=== PATIENT | female | born 2000 | race Caucasian/White ===

== ENCOUNTER 2024-02-02 15:41 | Emergency (ER) | payer OTHER, SELFPAY ==
--- NOTE | ~2024-02-02 | US_ITS ---
EXAMINATION: US PELVIS CLINICAL INFORMATION: Heavy menstruation, pain and nausea. Currently having menstrual period. COMPARISON: None available. TECHNIQUE: Ultrasound of the pelvis is performed using both transabdominal and transvaginal transducers along with Doppler. Transvaginal imaging is performed due to inadequate visualization transabdominally. FINDINGS: Uterus: The uterus is anteverted and measures 6.1 x 3.1 x 3.5 cm. The double wall endometrial thickness is 4 mm. The uterus is smooth in contour and has normal myometrial echogenicity. No visible fibroid. Adnexa: Ovaries are normal in morphology with preserved flow at the moment of this examination.There is no pelvic ascites or fluid collection. Right ovary measures 3.2 x 1.6 x 2.2 cm. Volume of 6 mL. Left ovary measures 3.2 x 2.3 x 1.8 cm. Volume of 7 mL. US/US pelvic and transvaginal IMPRESSION: No acute sonographic abnormalities to explain the patient's symptoms.
[2024-02-02 15:43] VITALS: BP 110/80; PULSE 113; RESP 18; TEMP 36.4; O2SAT 100; BMI 29.2
--- NOTE | 2024-02-02 15:45 | ED_ITS ---
HPI - General Adult General Chief complaint: Dizziness Stated complaint: bleeding heavily/dizziness Time Seen by Provider: 02/02/24 20:57 Source: patient Mode of arrival: ambulatory Limitations: no limitations History of Present Illness HPI narrative: Patient is a 23-year-old female presenting to emergency department for evaluation of symptoms with onset yesterday including generalized body aches, dizziness, nausea with multiple episodes of vomiting while in the waiting room, menstrual cramping, heavy vaginal bleeding with reports of soaking through super tampon within 2 hours with her menses having began a couple of days ago. Reports home testing is negative, has history of PCOS. Reports chronic nasal congestion without any worsening. Denies fevers, chills, chest pain, shortness of breath, constipation, diarrhea, urinary symptoms, concern for STI. Denies any recent sick contacts. Related Data Previous Rx's Medication Instructions Recorded ondansetron 4 mg disintegrating 4 mg PO Q8H PRN nausea and 02/03/24 tablet vomiting #10 tabs Allergies Allergy/AdvReac Type Severity Reaction Status Date / Time No Known Allergies Allergy Verified 02/02/24 15:49 Review of Systems 2 Review of Systems: Yes all other systems are reviewed and are negative [facility] Past Medical History Attestation statement: The following information was validated with the patient. Source: old records reviewed Social History Social History Smoked in Last 30 Days: No Use of substances other than those prescribed or required for medical reasons: No Advance Directives: No Advance Directives Information Provided: No Physical Exam ED Vital Signs: Vital Signs - 24 hr 02/02/24 15:43 02/02/24 21:05 02/02/24 23:29 Temperature 97.6 F 97.9 F 98.0 F Pulse Rate 113 H 105 H 92 Respiratory Rate 18 17 17 Blood Pressure 110/80 135/71 113/58 L Pulse Oximetry 100 98 100 Oxygen Delivery Method Room Air Room Air Room Air BMI result Body Mass Index 29.2 Appearance: Alert.?Oriented to person, place and time. No acute distress.?Normal affect. Eyes: Pupils equal, round and reactive to light.? ENT: Pharynx normal.?? Neck: Normal inspection.? Neck supple.?? CVS: Heart sounds normal. Mild tachycardia, normal rhythm Pulses normal.?? Respiratory: No respiratory distress.? Lung sounds clear to auscultation bilaterally?? Abdomen: Soft and non-tender. Normoactive bowel sounds. No pulsatile mass.??No CVA tenderness Skin: Skin warm and dry.? Normal skin color.? Extremities: No lower extremity edema.? No calf ttp? Neuro: Moves all extremities spontaneously. Sensation intact bilaterally. No focal neuro deficits. Ambulates with normal steady gait. Course Course Course Narrative: RME- 23 year old female presents for evaluation of body aches, cramps, and heavy vaginal bleeding. She reports not feeling well since yesterday with nausea. Plan for labs, HCG, UA Reevaluation(s) Reevaluation #1: CBC reveals mild leukocytosis of 13.7, electrolytes within normal range, no PARK. Transaminases normal. Lipase within normal range. HCG negative. Urinalysis with hematuria, no evidence of urinary infection. Viral panel is negative. Feel symptomatic improvement after normal saline and Zofran IV. Pelvic ultrasound revealing no acute abnormality. Suspect likely a viral syndrome as etiology, recommended repeat viral testing in a couple of days should symptoms persist. Discussed strict return precautions. Tolerating oral intake. Stable for discharge. Medications Administered Discontinued Medications Generic Name Dose Route Start Last Admin Trade Name Freq PRN Reason Stop Dose Admin Sodium Chloride 1,000 mls @ 999 mls/hr 02/02/24 22:00 02/02/24 23:50 Ns IV 02/02/24 23:00 Infused .Q1H1M NAVI Infusion Ondansetron HCl 4 mg 02/02/24 15:49 02/02/24 15:51 Ondansetron Odt 4 Mg Tab.Rapdis TRANSLINGU 02/02/24 15:50 4 mg ONCE ONE Administration Ondansetron HCl 4 mg 02/02/24 21:59 02/02/24 22:43 Ondansetron Hcl 4 Mg/2 Ml Vial IVPUSH 02/02/24 22:00 4 mg ONCE ONE Administration Medical Decision Making Medical Decision Making MDM Narrative: Patient is a 23-year-old female who presents emergency department for evaluation of multiple complaints including viral type symptoms, dizziness nausea menstrual cramping and heavy vaginal bleeding as per HPI. At the time my examination she appears overall well, she is mildly tachycardic but afebrile no tachypnea or hypoxia. Abdominal examination is benign. Will obtain CBC to evaluate for leukocytosis/ anemia, CMP and lipase to evaluate for abnormal electrolytes /abnormal renal function/ abnormal hepatic/biliary function, hCG, pelvic ultrasound, and Urinalysis. Differential Diagnosis Differential Diagnoses: The differential diagnosis associated with the presentation includes (UTI, , irregular menstrual bleeding, viral syndrome, COVID-19, influenza, dehydration) Admission/Observation Consideration of admission/observation: Escalation of care including admission/observation considered (See narrative above and course narrative for further detail) Lab Data MDM Lab Attestation statement: I reviewed the patient's lab results. CBC reveals a mild leukocytosis with left shift, no anemia, overall unremarkable CMP, lipase within normal limits, hCG negative. Viral panel negative. 02/02/24 16:47 02/02/24 16:47 Labs: Lab Results 02/02/24 02/02/24 02/02/24 Range/Units 16:47 19:27 21:15 WBC 13.7 H (4.8-10.8) X10*3/uL RBC 5.44 (4.20-5.50) X10*6/uL Hgb 16.1 H (12.0-16.0) g/dl Hct 47.6 H (37.0-47.0) % MCV 87.5 (80.0-98.0) fL MCH 29.6 (27.0-33.0) pg MCHC 33.8 (31.0-35.0) g/dl RDW 13.2 (11.0-16.0) % Plt Count 296 (160-400) X10*3/uL MPV 9.9 (9.4-12.3) fL Immature Gran % (Auto) 0.3 (0.0-0.4) % Neut % (Auto) 87.7 H (45-73) % Lymph % (Auto) 4.2 L (20-40) % [place] % (Auto) 5.5 (2-11) % Eos % (Auto) 2.0 (0-4) % Baso % (Auto) 0.3 (0-2) % Lymph # (Auto) 0.6 L (1.2-4.9) X10*3/uL [place] # (Auto) 0.8 (0.1-1.2) X10*3/uL Eos # (Auto) 0.3 (0.0-0.4) X10*3/uL Baso # (Auto) 0.0 (0.0-0.2) X10*3/uL Abs Immat Gran (auto) 0.04 H (0.00-0.03) X10*3/uL Absolute Neuts (auto) 12.0 H (2.0-8.3) x10*3/uL Absolute Nucleated RBC 0.000 (0.0-0.012) X10*3/uL Nucleated RBC % (auto) 0.0 (0.0-0.2) /100WBC Sodium 136 (135-145) mmol/L Potassium 3.8 (3.3-5.1) mmol/L Chloride 108 (96-108) mmol/L Carbon Dioxide 21 L (22-29) mmol/L Anion Gap 11 L (12-20) BUN 13 (9-16) mg/dL Creatinine 0.77 (0.5-1.4) mg/dL Estim Creat Clear Calc 111.9 Estimated GFR > 60 POC Glucose (60-115) mg/dL Random Glucose 133 H (60-115) mg/dL Calcium 9.3 (8.4-10.2) mg/dL Total Bilirubin 0.5 (0.0-1.0) mg/dL AST 15 (5-31) U/L ALT 23 (0-31) U/L Alkaline Phosphatase 90 (39-117) U/L Total Protein 7.8 (6.5-8.0) g/dL Albumin 4.3 (3.5-5.0) g/dL Lipase 36 (8-78) U/L Beta HCG, Quant < 2 mIU/mL Urine Color Urine Appearance Urine pH (5.0-9.0) Ur Specific Abie (1.005-1.025) Urine Protein (Neg-Trace) mg/dL Urine Glucose (UA) (Negative) mg/dL Urine Ketones (Negative) mg/dL Urine Blood (Negative) Urine Nitrite (Negative) Ur Leukocyte Esterase (Negative) Urine RBC (0-2) /HPF Urine WBC (0-5) /HPF Ur Squamous Epith Cells (0-2) /HPF Urine Bacteria (None Seen) Hyaline Casts (0-2) /LPF Influenza Type A (PCR) NEGATIVE (Negative) Influenza Type B (PCR) NEGATIVE (Negative) RSV RNA Qual (PCR) NEGATIVE (Negative) SARS-CoV-2 RNA (RT-PCR) NEGATIVE (Negative) Blood Type AB Negative Antibody Screen NEGATIVE 02/02/24 02/02/24 Range/Units 22:48 23:45 WBC (4.8-10.8) X10*3/uL RBC (4.20-5.50) X10*6/uL Hgb (12.0-16.0) g/dl Hct (37.0-47.0) % MCV (80.0-98.0) fL MCH (27.0-33.0) pg MCHC (31.0-35.0) g/dl RDW (11.0-16.0) % Plt Count (160-400) X10*3/uL MPV (9.4-12.3) fL Immature Gran % (Auto) (0.0-0.4) % Neut % (Auto) (45-73) % Lymph % (Auto) (20-40) % [place] % (Auto) (2-11) % Eos % (Auto) (0-4) % Baso % (Auto) (0-2) % Lymph # (Auto) (1.2-4.9) X10*3/uL [place] # (Auto) (0.1-1.2) X10*3/uL Eos # (Auto) (0.0-0.4) X10*3/uL Baso # (Auto) (0.0-0.2) X10*3/uL Abs Immat Gran (auto) (0.00-0.03) X10*3/uL Absolute Neuts (auto) (2.0-8.3) x10*3/uL Absolute Nucleated RBC (0.0-0.012) X10*3/uL Nucleated RBC % (auto) (0.0-0.2) /100WBC Sodium (135-145) mmol/L Potassium (3.3-5.1) mmol/L Chloride (96-108) mmol/L Carbon Dioxide (22-29) mmol/L Anion Gap (12-20) BUN (9-16) mg/dL Creatinine (0.5-1.4) mg/dL Estim Creat Clear Calc Estimated GFR POC Glucose 105 (60-115) mg/dL Random Glucose (60-115) mg/dL Calcium (8.4-10.2) mg/dL Total Bilirubin (0.0-1.0) mg/dL AST (5-31) U/L ALT (0-31) U/L Alkaline Phosphatase (39-117) U/L Total Protein (6.5-8.0) g/dL Albumin (3.5-5.0) g/dL Lipase (8-78) U/L Beta HCG, Quant mIU/mL Urine Color Yellow Urine Appearance Clear Urine pH 5.5 (5.0-9.0) Ur Specific Abie >= 1.030 H (1.005-1.025) Urine Protein Negative (Neg-Trace) mg/dL Urine Glucose (UA) 100 H (Negative) mg/dL Urine Ketones 40 (Negative) mg/dL Urine Blood Large (3+) H (Negative) Urine Nitrite Negative (Negative) Ur Leukocyte Esterase Negative (Negative) Urine RBC >20 H (0-2) /HPF Urine WBC 0-5 (0-5) /HPF Ur Squamous Epith Cells 0-2 (0-2) /HPF Urine Bacteria None Seen (None Seen) Hyaline Casts 0-2 (0-2) /LPF Influenza Type A (PCR) (Negative) Influenza Type B (PCR) (Negative) RSV RNA Qual (PCR) (Negative) SARS-CoV-2 RNA (RT-PCR) (Negative) Blood Type Antibody Screen Radiology Impression Discussion of test interpretation with radiology: I have reviewed the radiologist's reading. Radiologist Impression: US/US pelvic and transvaginal IMPRESSION: No acute sonographic abnormalities to explain the patient's symptoms. Independent Historian Clinical information obtained from an independent historian. History obtained from or confirmed by: Parent (Present who confirms history) Critical Care Time Critical Care Time Critical Care Time: Yes Total Critical Care Time: 40 Attestation: I personally attest to this critical care time spent taking care of the patient exclusive of all other billable procedures was approximately 40 minutes including initial evaluation of patient, ordering tests, US / CT interpretation, documentation, re-evaluation. Discharge Plan Discharge Clinical Impression: Acute viral syndrome, Heavy menstrual bleeding Patient Disposition: Home, Self-Care Instructions: Dysfunctional Uterine Bleeding (ED), Viral Syndrome (ED) Additional Instructions: Follow-up closely with your primary care provider, contact their office tomorrow to arrange for follow-up. Return back to emergency department with any new or worsening symptoms or concerns. Consider repeating testing for COVID-19 and a couple of days should your symptoms persist. Introduce a bland diet including crackers, bananas, rice, soup, toast, and boiled vegetables. This may progress to plain baked or boiled chicken or turkey. Avoid dairy products or foods high in fat or grease. Take Zofran as needed every 8 hours for nausea/vomiting. Prescriptions: New ondansetron 4 mg tablet,disintegrating 4 mg PO Q8H PRN (Reason: nausea and vomiting) Qty: 10 0RF Referrals: Dorothy Gonzales MD [Primary Care Provider] - Interventions: ED Discharge Assessment Last Done: 02/03/24 00:59 Discharge Date/Time: 02/03/24 00:35
[2024-02-02] MEDS: Ondansetron ODT 4 MG TAB.RAPDIS TRANSLINGU (15:51)
[2024-02-02 16:52] LABS: MANUAL DIFF FLAG NO
[2024-02-02 16:54] LABS: Basophils Percent Auto 0.3 % (0-2); Eosinophils Absolute Auto 0.3 X10*3/uL (0.0-0.4); Hematocrit 47.6 % (37.0-47.0); Hemoglobin 16.1 g/dl (12.0-16.0); Imm Gran Abs Auto 0.04 X10*3/uL (0.00-0.03); Imm Gran Pct Auto 0.3 % (0.0-0.4); Lymphocytes Absolute Auto 0.6 X10*3/uL (1.2-4.9); Lymphocytes Percent Auto 4.2 % (20-40); Mean Corpuscular HGB Conc 33.8 g/dl (31.0-35.0); Mean Corpuscular Hemoglobin 29.6 pg (27.0-33.0); Mean Corpuscular Volume 87.5 fL (80.0-98.0); Mean Platelet Volume 9.9 fL (9.4-12.3); Monocytes Absolute Auto 0.8 X10*3/uL (0.1-1.2); Monocytes Percent Auto 5.5 % (2-11); Neutrophils Percent Auto 87.7 % (45-73); Platelet Count 296 X10*3/uL (160-400); Red Blood Count 5.44 X10*6/uL (4.20-5.50); Red Cell Distribution Width 13.2 % (11.0-16.0); White Blood Count 13.7 X10*3/uL (4.8-10.8)
[2024-02-02 17:14] LABS: Alanine Aminotransferase 23 U/L (0-31); Albumin Level 4.3 g/dL (3.5-5.0); Alkaline Phosphatase 90 U/L (39-117); Anion Gap 11 (12-20); Aspartate Amino Transferase 15 U/L (5-31); Bilirubin Total 0.5 mg/dL (0.0-1.0); Blood Urea Nitrogen 13 mg/dL (9-16); Calcium 9.3 mg/dL (8.4-10.2); Carbon Dioxide 21 mmol/L (22-29); Chloride 108 mmol/L (96-108); Creatinine Clr Calc Pharmacy 111.9; Estimated Glomerular Filt Rate > 60; Glucose Random 133 mg/dL (60-115); Lipase 36 U/L (8-78); Potassium 3.8 mmol/L (3.3-5.1); Sodium 136 mmol/L (135-145); Total Protein 7.8 g/dL (6.5-8.0)
[2024-02-02 17:22] LABS: HCG Quantitative < 2 mIU/mL
[2024-02-02 21:05] VITALS: BP 135/71; PULSE 105; RESP 17; TEMP 36.6; O2SAT 98
[2024-02-02 21:57] LABS: Influenza A PCR NEGATIVE (Negative); Influenza B PCR NEGATIVE (Negative); Resp Syncy Virus RNA Qual PCR NEGATIVE (Negative); SARS COV2 PCR INHOUSE NEGATIVE (Negative)
[2024-02-02] MEDS: ondansetron HCL 4 MG/2 ML VIAL IVPUSH (22:43)
[2024-02-02] MEDS: 0.9 % Sodium Chloride 1,000 ML 999 ML IV (22:43)
[2024-02-02 22:52] LABS: Glucose, Whole Blood 105 mg/dL (60-115)
--- NOTE | 2024-02-02 22:54 | PC.NURSE ---
pt medicated per mar. ivf infusing. nad. vss. heating pack provided for lower back pain pt reports improves sx. family at bedside. call shane within reach.
--- NOTE | 2024-02-02 23:03 | PC.NURSE ---
poc glucose checked as pt is type 1 diabetic and hasnt had po fluids/food since am. 105 at this time pt denies hypoglycemic sx.
[2024-02-02 23:29] VITALS: BP 113/58; PULSE 92; RESP 17; TEMP 36.7; O2SAT 100
[2024-02-02 23:52] LABS: Appearance Urine Clear; Color Urine Yellow; Glucose Urine UA 100 mg/dL (Negative); Leukocyte Esterase Urine Negative (Negative); Nitrite Urine Negative (Negative); PH 5.5 (5.0-9.0); Specific Gravity - Urine >= 1.030 (1.005-1.025); UMIC TRIGGER UACC YES; Urine Blood Large (3+) (Negative); Urine Ketones 40 mg/dL (Negative); Urine Protein Negative (Neg-Trace)
[2024-02-02 23:54] LABS: Bacteria Urine None Seen (None Seen); Hyaline Casts Urine 0-2 /LPF (0-2); RBC Urine >20 /HPF (0-2); Squamous Epithelial Cell Urine 0-2 /HPF (0-2); WBC Urine 0-5 /HPF (0-5)
== END 2024-02-03 00:35 | disposition home or self-care (01) ==
PROVIDERS: Nurse Practitioner Family; Physician Assistant; Emergency Provider Emergency Medicine Emergency Medical Services; PCP Internal Medicine
DX: N92.0 Excessive and frequent menstruation with regular cycle (principal); B34.9 Viral infection, unspecified; R42 Dizziness and giddiness; R10.2 Pelvic and perineal pain; M79.10 Myalgia, unspecified site; R11.2 Nausea with vomiting, unspecified; Z11.52 Encounter for screening for COVID-19; Z20.822 Contact with and (suspected) exposure to COVID-19; Z79.899 Other long term (current) drug therapy
CPT/HCPCS: 0241U; 36415; 76830; 76856; 80053; 81001; 82947; 83690; 84702; 85025; 86850; 86900; 86901; 96361; 96374; 99284; 99285; J2405

== ENCOUNTER 2024-02-03 10:49 | Outpatient (AMB) | payer OTHER, SELFPAY ==
[2024-02-03 11:01] VITALS: BP 108/70; BMI 29.0
--- NOTE | 2024-02-03 11:01 | MHC.PC.OV ---
Vital Signs 02/03/24 11:01 Height 5 ft 3 in Weight 164 lb BMI 29.0 BP 108/70 Blood Pressure Location Lt brachial Position Sitting Intake Visit Reasons: Hunter Guide Intake Note: New patient, establishing care, seen at [facility] ED on 02/02/24 for menstrual bleeding, back pain Hand Outside Cutter Required: No Accompanied by: Mother Allergies No Known Allergies Allergy (Verified 02/03/24 11:24) Medication List - Last Reconciled 02/03/24 by Dorothy Chery MD dextroamphetamine-amphetamine 5 mg PO empagliflozin (Jardiance) 25 mg PO QAM escitalopram oxalate 5 mg PO DAILY hydroxyzine HCl 10 mg PO ONCE PRN lorazepam 0.5 mg PO DAILY metformin 1,000 mg PO BID ondansetron 4 mg PO Q8H PRN Tobacco use date assessed: 02/03/24 Dental Screening Dental Screen Date: 02/03/24 Did you have a dental visit in the last 12 months?: Yes Did you have a dental problem in the last 6 months where you did not have access to dental care?: No Was dental information given to patient?: Patient has dentist HPI HPI Comments History of Present Illness Details This is a 23-year-old female with diabetes mellitus type 2 diagnosed about 3 years ago and mild major depression follow by Psychiatry that comes accompanied by mother for hospital discharge follow-up with discharge date 02/02/2024 due to heavy menstrual. Associated with nausea, vomiting and diarrhea. Had labs, urine and pelvic ultrasound done which showed no significant abnormality except elevated white blood cells with low lymphocytes most likely due to viral gastroenteritis. COVID, RSV and flu tested negative. Pelvic ultrasound normal. Urinalysis only with hematuria due to heavy menstrual bleed. Bleeding has markedly improved today. Will be referred to OBGYN. Nausea, vomiting and diarrhea has resolved. She was also complaining of low back pain crampy like in quality that has improved on its own today but I will still order a lumbar x-ray. No fever. She was diagnose few years ago with diabetes mellitus and started on insulin but then they change her to metformin and Jardiance. She tried Trulicity in the past and got very sick from it. Her mild major depression has been follow by Psychiatry and stable with escitalopram. Was recommended to get a neuro psychiatry referral also due to her ADHD. [facility] Surgical History History of wisdom tooth extraction Family History Mother Osteoporosis Franck's disease Father Diabetes Kidney disease Hypercholesteremia Social History Housing: House Alcohol intake: current Alcohol intake frequency: holidays/special occasions only Alcohol type: wine and hard liquor Patient Tobacco Use Status: Never used Tobacco e-Cigarette/Vaping Use: Never Used Second Hand Smoke Exposure: No service: No Current occupational status: employed Current occupational exposures/hazards: No Cognitive needs: No Hearing needs: No Vision needs: Yes Questionnaire PHQ-9 Over the last 2 weeks, how often have you been bothered by any of the following problems? 1. Little interest or pleasure in doing things: more than half the days 2. Feeling down, depressed, or hopeless: several days 3. Trouble falling or staying asleep, or sleeping too much: several days 4. Feeling tired or having little energy: more than half the days 5. Poor appetite or overeating: several days 6. Feeling bad about yourself - or that you are a failure or have let yourself or your family down: several days 7. Trouble concentrating on things, such as reading the newspaper or watching television: more than half the days 8. Moving or speaking so slowly that other people could have noticed. Or the opposite - being so fidgety or restless that you have been moving around a lot more than usual: several days 9. Thoughts that you would be better off or of hurting yourself in some way: not at all Total score: 11 Depression Screening Interpretation: Positive Depression Screening Follow-up: Existing condition and Community Mental Health Worker F/U Depression Screening Done: Yes 88072 - PHQ-9 Billing: Yes Source: Developed by Drs. Leonard Neves, Akosua Vasquez, Mukesh Mensah and colleagues, with an educational svetlana from [employer]. Thrive Questionnaire Date Thrive assessed: 02/03/24 I am a: Patient What is your living situation today?: I have a steady place to live Within the past 12 months, did the food you bought not last and you didn't have the money to get more?: Never true Within the past 12 months, did you worry whether your food would run out before you got money to buy more?: Never true Do you have trouble paying for medicines?: No Do you have trouble getting transportation to medical appointments?: No Do you have trouble paying your heating and electricity bill?: No Do you have trouble taking care of your child, family member or friend?: No Do you have trouble with day-to-day activities such as bathing, preparing meals, shopping, managing finances, etc.?: No Are you currently unemployed and looking for a job?: No Are you interested in more education?: No Please select the resources that you would like help with: None Currently or been in a relationship where the following occur: no concerns reported THRIVE Score: 0 AUDIT C Alcohol Use Questionnaire (AUDIT-C) 1. How often do you have a drink containing alcohol?: Monthly or less 2. How many drinks containing alcohol do you have on a typical day when you are drinking?: 1 or 2 3. How often do you have six or more drinks on one occasion?: Never Total Score: 1 ARUN-7 AMB Questionnaire ARUN-7 Date ARUN - 7 assessed: 02/03/24 Feeling nervous, anxious, or on edge: 1 = Several days Not being able to stop or control worryin = Several days Worrying too much about different things: 1 = Several days Trouble relaxin = Several days Being so restless that it is hard to sit still: 1 = Several days Becoming easily annoyed or irritable: 2 = More than half the days Feeling afraid as if something awful might happen: 1 = Several days Total ARUN-7 score (0-4 normal; 5-9 mild; 10-14 moderate; 15-21 severe): 8 Source: Developed by Drs. Leonard Neves, Akosua Vasquez, Mukesh Mensah and colleagues, with an educational svetlana from [employer]. ARUN-7 Assessment Billing ARUN-7 Assessment Tool: ARUN-7 Assessment 84726 Review of Systems Const All systems reviewed & are unremarkable except as noted in HPI and below Eyes Reports no additional complaints, Denies change in vision and Denies other visual disturbances Card Denies chest pain at rest, Denies chest pain with activity, Denies edema, Denies irregular heart rhythm, Denies claudication, Denies dyspnea, Denies dyspnea on exertion, Denies orthopnea, Denies paroxysmal nocturnal dyspnea and Denies slow heart rate Resp Denies cough, Denies dyspnea and Denies dyspnea on exertion GI Denies abdominal pain, Denies change in bowel habits, Denies excessive flatus, Denies nausea and Denies vomiting Denies urinary incontinence, Denies urinary hesitancy and Denies urinary urgency Musc Denies atrophy, Denies deformity and Denies limited range of motion Physical exam (Primary Care) Vital Signs: Last Vital Signs BP 108/70 02/03/24 11:01 BMI result Body Mass Index 29.0 Tobacco/Smoking Status: Tobacco use Status Tobacco use date assessed 02/03/24 02/03/24 11:16 Patient Tobacco Use Status Never used Tobacco 02/03/24 11:16 e-Cigarette/Vaping Use Never Used 02/03/24 11:16 PHQ-9: PHQ-9 Score PHQ-9: Total score 11 02/03/24 11:37 Depression Screening Interpretation: Positive Depression Screening Follow-up: Existing condition and Community Mental Health Worker F/U Thrive Assessment: Date of Thrive Assessment Date Thrive assessed 02/03/24 02/03/24 11:16 Currently or been in a relationship where the following occur: no concerns reported Eyes General: appearance normal, both eyes and all related structures Eyelids: Yes eyelids normal Conjunctivae: conjunctivae normal Neck Neck: Yes normal visual inspection and Yes supple Resp Effort & Inspection: normal respiratory effort Auscultation: clear to auscultation bilaterally Cardio Jugular venous distension: no JVD Rate: regular rate Rhythm: regular rhythm Heart sounds: S1 normal heart sound present and S2 normal heart sound present Extrem General: Yes full ROM Results AMB Hemoglobin A1c AMB Hemoglobin A1c 5.9 % Last Edit by CHAYO Ibarra on 02/03/24 12:03 Assessment and Plan Assessment & Plan (1) Hospital discharge follow-up: Code(s): Z09 - Encounter for follow-up examination after completed treatment for conditions other than malignant neoplasm Plan: Discharge date 02/02/2024 due to heavy menstrual bleeding. Pelvic ultrasound done showing no significant abnormality. She will be referred to OBGYN. Labs showed leukocytosis with lymphopenia and this will be repeated in 2 weeks. Urine did not show any significant abnormality besides blood in the urine which is expected. Is bleeding less. Had nausea, vomiting and diarrhea which resolved. (2) Diabetes mellitus: Code(s): E11.9 - Type 2 diabetes mellitus without complications Plan: Continue metformin and Jardiance. Labs order. A1c goal is equal or less than 7%. (3) Heavy menstrual bleeding: Code(s): N92.0 - Excessive and frequent menstruation with regular cycle Plan: Referred to OBGYN. Repeat H&H in 2 weeks. (4) Mild major depression: Code(s): F32.0 - Major depressive disorder, single episode, mild Plan: Continue escitalopram. Continue follow-up with psychiatry. (5) Lumbar pain: Code(s): M54.50 - Low back pain, unspecified Plan: X-ray ordered. (6) Leukocytosis: Code(s): D72.829 - Elevated white blood cell count, unspecified Plan: CBC will be repeated in 2 weeks. Orders: Orders IRON PROFILE Today D64.9 - Anemia, unspecified, N92.0 - Excessive and frequent menstruation with regular cycle AMB Hemoglobin A1c Today E11.9 - Type 2 diabetes mellitus without complications XR lumbar spine 2-3V Today M54.50 - Low back pain, unspecified Lipid Panel Today E11.9 - Type 2 diabetes mellitus without complications, E78.5 - Hyperlipidemia, unspecified Microalbumin, Random (w Creat) Today E11.9 - Type 2 diabetes mellitus without complications Comprehensive [place]. Panel Fast Today E11.9 - Type 2 diabetes mellitus without complications Glutamic acid decarboxylase Ab Today E11.9 - Type 2 diabetes mellitus without complications Insulin Auto Antibody Today E11.9 - Type 2 diabetes mellitus without complications Thyroid Stimulating Hormone Today N92.0 - Excessive and frequent menstruation with regular cycle Complete Blood Count Auto Diff Today D72.829 - Elevated white blood cell count, unspecified, N92.0 - Excessive and frequent menstruation with regular cycle Referrals Neuropsychiatry Referral F32.0 - Major depressive disorder, single episode, mild, F90.9 - Attention-deficit hyperactivity disorder, unspecified type G[employer] HELPER Referral N92.0 - Excessive and frequent menstruation with regular cycle Coding Level of Care Code TCM Mod MDM <= 7 Days Diagnoses Hospital discharge follow-up Z09 Diabetes mellitus E11.9 Heavy menstrual bleeding N92.0 Mild major depression F32.0 Lumbar pain M54.50 Leukocytosis D72.829 Additional Codes ARUN-7 Assessment Billing - ARUN-7 Assessment Tool: ARUN-7 Assessment 53103 ([id number]) Time Spent (min) 25
== END 2024-02-03 11:47 | disposition home or self-care (01) ==
PROVIDERS: PCP Internal Medicine; Visit Provider Internal Medicine
DX: N92.0 Excessive and frequent menstruation with regular cycle (principal); E11.9 Type 2 diabetes mellitus without complications; F32.0 Major depressive disorder, single episode, mild; M54.50 Low back pain, unspecified; D72.829 Elevated white blood cell count, unspecified
CPT/HCPCS: 83036; 99214

== ENCOUNTER 2024-02-03 11:58 | Outpatient (REF) | payer OTHER, SELFPAY ==
--- NOTE | ~2024-02-03 | XR_ITS ---
EXAMINATION: XR LUMBOSACRAL SPINE CLINICAL INFORMATION: Low back pain, unspecified COMPARISON: None available. TECHNIQUE: Three views of the lumbosacral spine. FINDINGS: There are 5 nonrib-bearing lumbar-type vertebral bodies. The most inferior thoracic vertebral body has a small riblet on the right and a transverse process on the left. The height of the vertebral bodies is well-maintained. There is a Schmorl's node within the superior endplate of L1. There is no disc space narrowing. Question of spondylolysis of L5. There is no spondylolisthesis. XR/XR lumbar spine 2-3V IMPRESSION: 1. No acute bony abnormality. 2. Question of spondylolysis of L5. CT scan or MRI scan could be obtained for further evaluation.
== END 2024-02-03 11:59 | disposition home or self-care (01) ==
LOC: HO.XRAY 11:58
PROVIDERS: PCP Internal Medicine; Visit Provider Internal Medicine
DX: M54.50 Low back pain, unspecified (principal)
CPT/HCPCS: 72100

== ENCOUNTER 2024-02-17 09:32 | Outpatient (REF) | payer OTHER, SELFPAY ==
[2024-02-17 09:58] LABS: MANUAL DIFF FLAG NO
[2024-02-17 10:20] LABS: Basophils Absolute Auto 0.1 X10*3/uL (0.0-0.2); Basophils Percent Auto 1.1 % (0-2); Eosinophils Absolute Auto 0.4 X10*3/uL (0.0-0.4); Eosinophils Percent Auto 5.5 % (0-4); Hematocrit 46.1 % (37.0-47.0); Hemoglobin 15.2 g/dl (12.0-16.0); Imm Gran Abs Auto 0.05 X10*3/uL (0.00-0.03); Imm Gran Pct Auto 0.7 % (0.0-0.4); Lymphocytes Absolute Auto 2.2 X10*3/uL (1.2-4.9); Lymphocytes Percent Auto 29.1 % (20-40); Mean Corpuscular Hemoglobin 29.4 pg (27.0-33.0); Mean Corpuscular Volume 89.2 fL (80.0-98.0); Monocytes Absolute Auto 0.8 X10*3/uL (0.1-1.2); Monocytes Percent Auto 10.8 % (2-11); Neutrophils Percent Auto 52.8 % (45-73); Platelet Count 338 X10*3/uL (160-400); Red Blood Count 5.17 X10*6/uL (4.20-5.50); Red Cell Distribution Width 13.2 % (11.0-16.0); White Blood Count 7.6 X10*3/uL (4.8-10.8)
[2024-02-17 10:55] LABS: Creatinine Urine 130.11 mg/dL; Microalbum/Creatinine Ratio Ur 4.6 ug/mg cr (<30)
[2024-02-17 10:58] LABS: Alanine Aminotransferase 46 U/L (0-31); Albumin Level 4.1 g/dL (3.5-5.0); Alkaline Phosphatase 94 U/L (39-117); Anion Gap 10 (12-20); Aspartate Amino Transferase 28 U/L (5-31); Bilirubin Total 0.3 mg/dL (0.0-1.0); Blood Urea Nitrogen 13 mg/dL (9-16); Calcium 9.1 mg/dL (8.4-10.2); Carbon Dioxide 24 mmol/L (22-29); Chloride 108 mmol/L (96-108); Cholesterol 147 mg/dL (<200); Estimated Glomerular Filt Rate > 60; Glucose Fasting 116 mg/dL (60-99); HDL Cholesterol 52 mg/dL (>40); Iron 115 mcg/dL (30-160); LDL Cholesterol Calculated 86 mg/dL (<100); Percent Iron Saturation 39 % (15-50); Potassium 4.2 mmol/L (3.3-5.1); Sodium 138 mmol/L (135-145); Total Iron Binding Capacity 292 mcg/dL (228-428); Total Protein 7.4 g/dL (6.5-8.0); Triglycerides 48 mg/dL (<150); Unsaturated Iron Binding 177 ug/dL
[2024-02-17 11:15] LABS: Thyroid Stimulating Hormone 2.16 uIU/mL (0.32-4.0)
[2024-02-21 17:03] LABS: Glutamic acid decarboxylase Ab <5 IU/mL (<5)
[2024-03-02 04:33] LABS: Insulin Auto Antibody <0.4 U/mL (<0.4)
== END 2024-02-17 09:33 | disposition home or self-care (01) ==
LOC: HO.LAB 09:32
PROVIDERS: PCP Internal Medicine; Visit Provider Internal Medicine
DX: D64.9 Anemia, unspecified (principal); N92.0 Excessive and frequent menstruation with regular cycle; E11.9 Type 2 diabetes mellitus without complications; E78.5 Hyperlipidemia, unspecified; D72.829 Elevated white blood cell count, unspecified
CPT/HCPCS: 36415; 80053; 80061; 82043; 82570; 83540; 84443; 85025; 86337; 86341

== ENCOUNTER 2024-03-16 08:53 | Outpatient (AMB) | payer OTHER, SELFPAY ==
--- NOTE | 2024-03-16 08:58 | AM.OFFWIN_ITS ---
Intake Vital Signs 03/16/24 09:01 Height 5 ft 3 in Weight 170 lb BMI 30.1 BP 104/70 Blood Pressure Location Rt brachial Position Sitting Respiration 16 Pulse 94 Temp 98.8 F Temp Source Oral Pulse Oximetry (%) 98 Oxygen Delivery Method Room Air Intake Visit Reasons: sore throat,bodyache Intake Note: Sore throat, body pain Patient Tobacco Use Status: Never used Tobacco Is last menstrual period known: No Allergies No Known Allergies Allergy (Verified 03/16/24 08:59) Medication List - Last Reconciled 03/16/24 by Opal Arreguin PA-C dextroamphetamine-amphetamine 5 mg PO escitalopram oxalate 5 mg PO DAILY hydroxyzine HCl 10 mg PO ONCE PRN lorazepam 0.5 mg PO DAILY Do you need a note to return to daycare/school/sports/work: Yes Return to daycare/school/sports/work/other note: work HPI sore throat,bodyache HPI Details Pt is a 23 y/o female who presents today with complaints of a sore throat that started Thursday but got a lot worse yesterday and into today. She states that yesterday she felt like her lymph nodes were swollen and her body is achy. She states that yesterday she developed sinus congestion, pnd, and a slight cough. No abdominal pain, n/v/d. She endorses subjective fevers and chills. 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 [facility] Surgical History History of wisdom tooth extraction Family History Mother Osteoporosis Franck's disease Father Diabetes Kidney disease Hypercholesteremia Social History Housing: House Alcohol intake: current Alcohol intake frequency: holidays/special occasions only Alcohol type: wine and hard liquor Patient Tobacco Use Status: Never used Tobacco e-Cigarette/Vaping Use: Never Used Second Hand Smoke Exposure: No service: No Current occupational status: employed Current occupational exposures/hazards: No Cognitive needs: No Hearing needs: No Vision needs: Yes Physical Exam Vital Signs: Last Vital Signs Temp 98.8 F 04/17/24 09:01 Pulse 94 03/16/24 09:01 Resp 16 03/16/24 09:01 BP 104/70 03/16/24 09:01 Pulse Ox 98 03/16/24 09:01 Oxygen Delivery Method Room Air 03/16/24 09:01 BMI result Body Mass Index 30.1 Const Orientation/consciousness: patient oriented x3 HEENT Ears: hearing grossly normal bilaterally and TM's normal bilaterally General nose exam: Nasal discharge present clear Face and sinus: Yes sinus tenderness (Maxillary sinus tenderness present) Throat: Yes posterior oropharynx normal, Yes abnormal tonsil (Slightly hypertrophied and erythematous) and Yes postnasal drainage Neck Thyroid: Thyroid normal Lymphatic: lymphadenopathy (Cervical anterior lymphadenopathy noted) Resp Auscultation: clear to auscultation bilaterally Cardio Rate: regular rate Rhythm: regular rhythm Heart sounds: S1 normal heart sound present and S2 normal heart sound present GI Inspection: Yes normal to inspection Palpation (GI): Soft to palpation and Other GI palpation findings present (nontender, no cva tenderness) Auscultation: normoactive bowel sounds Rectal Exam - Female: deferred Skin General skin exam: no rashes or lesions noted Neuro General: patient oriented x3, gait normal and no focal motor deficits Results AMB Rapid Strep AMB Rapid Strep Negative Last Edit by Marivel Reeves CMA on 03/16/24 09:3 2 Assessment & Plan Assessment & Plan (1) Viral infection: Code(s): B34.9 - Viral infection, unspecified Plan: Discussed with patient that the rapid strep was negative. Discussed that this appears viral in etiology and should resolve with time. Throat culture ordered. COVID, flu and RSV testing ordered as well. We will follow up pending test results. We discussed supportive measures. A prescription for Flonase and ibuprofen was provided. Advised her to rest, hydrate and to avoid people while she is feeling sick. A work note was provided. She will follow up if anything worsens or changes. Patient understands and agrees with this plan. Orders: Orders Throat Culture Today B34.9 - Viral infection, unspecified SARS-CoV2/FLU/RSV Today R09.89 - Other specified symptoms and signs involving the circulatory and respiratory systems Medications: New fluticasone propionate 50 mcg/actuation (Flonase Allergy Relief) administer into each nostril 1 spray intranasal Q12H 16 grams 0RF ibuprofen 800 mg PO Q8H 10 days PRN 30 tabs 0RF pain Coding Level of Care Code Est Pt Level 3 (68072) Diagnoses Viral infection B34.9
[2024-03-16 09:01] VITALS: BP 104/70; PULSE 94; RESP 16; TEMP 37.1; O2SAT 98; BMI 30.1
== END 2024-03-16 09:29 | disposition home or self-care (01) ==
PROVIDERS: PCP Internal Medicine; Visit Provider Physician Assistant
DX: J02.9 Acute pharyngitis, unspecified (principal); B34.9 Viral infection, unspecified
CPT/HCPCS: 87880; 99213

== ENCOUNTER 2024-03-16 09:23 | Outpatient (REF) | payer OTHER, SELFPAY ==
[2024-03-16 13:08] LABS: Influenza A PCR NEGATIVE (Negative); Influenza B PCR NEGATIVE (Negative); Resp Syncy Virus RNA Qual PCR NEGATIVE (Negative); SARS COV2 PCR INHOUSE NEGATIVE (Negative)
== END 2024-03-16 09:24 | disposition home or self-care (01) ==
LOC: HO.LAB 09:23
PROVIDERS: Visit Provider Physician Assistant
DX: Z11.52 Encounter for screening for COVID-19 (principal); R09.89 Other specified symptoms and signs involving the circulatory and respiratory systems
CPT/HCPCS: 0241U

== ENCOUNTER 2024-05-17 09:28 | Outpatient (REF) | payer OTHER, SELFPAY ==
[2024-05-18 03:55] LABS: CT PCR NOT DETECTED (Not Detect.); NG PCR NOT DETECTED (Not Detect.)
[2024-05-18 08:32] LABS: Bacterial Vaginosis PCR NEGATIVE (Negative); Candida Group PCR NOT DETECTED (Not Detect); Candida glab krusei PCR NOT DETECTED (Not Detect); Trichomonas vaginalis PCR NOT DETECTED (Not Detect)
[2024-05-23 20:23] LABS: HPV mRNA E6/E7 rflx Not Detected (Not Detected)
== END 2024-05-17 09:29 | disposition home or self-care (01) ==
LOC: HO.LAB 09:28
PROVIDERS: PCP Internal Medicine; Visit Provider Advanced Practice Midwife
DX: Z01.419 Encounter for gynecological examination (general) (routine) without abnormal findings (principal); E28.2 Polycystic ovarian syndrome; E66.9 Obesity, unspecified; Z11.3 Encounter for screening for infections with a predominantly sexual mode of transmission
CPT/HCPCS: 0352U; 0353U; 81025; 87624; 88142; 99385

== ENCOUNTER 2024-05-17 09:28 | Outpatient (AMB) | payer OTHER, SELFPAY ==
--- NOTE | 2024-05-17 09:29 | A.OFFVIS_ITS ---
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 Present Allergies No Known Allergies Allergy (Verified 05/17/24 09:32) Medication List - Last Reconciled 05/17/24 by Sarah Miller CNM dextroamphetamine-amphetamine 5 mg PO escitalopram oxalate 5 mg PO DAILY fluticasone propionate 50 mcg/actuation (Flonase Allergy Relief) 1 spray intranasal Q12H hydroxyzine HCl 10 mg PO ONCE PRN ibuprofen 800 mg PO Q8H PRN 10 days lorazepam 0.5 mg PO DAILY Is last menstrual period known: Yes Last menstrual period: 05/02/24 HPI 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 She thought it was for a full Pap smear nurse gynecology visit because she has not had that before. She recently saw her primary care provider who referred her she had had an episode of heavy bleeding but it was also accompanied by nausea and dizziness and not feeling well and her mother told her to go to the ER in case she has having a topic because she had recently become sexually active with her 1st partner. She has not actively contraceptive thing and will deal with the if it happens but would actually prefer on questioning to not be at this time she would like to do a test before the end of the visit (it was negative she has not late for her period-was just over 2 weeks ago. Patient has a very clear history of being diagnosed with diabetes type 2 when she was about 20 years old she was diagnosed by her pulper tender Dr. Marline ibrahim and had blood sugars in 300s and was I believe admitted at that time and stabilized and on metformin as well as insulin several times a day she also saw a pediatric professional wrestler done at [facility] until there was loss of insurance and change from pulper tender to adulthood. She also a that time in in those years endeavor very hard to lose weight and she started exercising and eating well and taking care of herself and she lost a lot of weight she also has had PCOS diagnosed at that time as well and she is very well educated about the relationship between PCOS and diabetes. She has currently not on metformin anymore though she has gained back some of the weight she lost. She is sexually active with her partner and she feels like it has a very good stable and supportive relationship and eating and she was in the emergency room all those hours in January for the bleeding and throwing up he was with her the whole time. 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 I did offer her whether not she wished to go on control pills or any of their analogs to regularize her periods for to prevent which she indicated interest in both but she has not ready to decide on that yet I strongly recommend condom use until she is positively welcoming the . I recommend taking a multivitamin with folic acid as well I also discussed that if she did become she would need to receive all care from the beginning at [facility] and she would be monitored very carefully for diabetes even though her blood sugars reportedly are good now and that she has maintain a healthier weight and maintaining her health is best thing she could do to help a future healthy as well. [facility] Medical History (Updated 05/17/24 @ 10:51 by Sarah Miller CNM) Depression Anxiety Hyperlipidemia associated with type 2 diabetes mellitus History of PCOS Surgical History History of wisdom tooth extraction Family History Mother Osteoporosis Franck's disease Father Diabetes Kidney disease Hypercholesteremia Social History Housing: House Alcohol intake: current Alcohol intake frequency: holidays/special occasions only Alcohol type: wine and hard liquor Patient Tobacco Use Status: Never used Tobacco e-Cigarette/Vaping Use: Never Used Second Hand Smoke Exposure: No service: No Current occupational status: employed Current occupational exposures/hazards: No Cognitive needs: No Hearing needs: No Vision needs: Yes Female Reproductive History Menstrual Age of Menarche: 17 Duration of menses: 3-5 days Date of last menstrual period: 05/02/24 control method: none Total pregnancies: 0 History of abnormal pap smear: No (no previous pap) Physical Exam Vital Signs: BMI result Body Mass Index 32.2 Const General: healthy appearing, comfortable, no acute distress, well developed and alert Nutritional Appearance: average body habitus Orientation/consciousness: patient oriented x3 Limitations: no limitations HEENT Head: Yes normocephalic Neck Neck: Yes normal visual inspection Thyroid: Thyroid normal Chest Chest palpation & inspection: normal inspection of the chest Breast/axilla inspection: normal inspection of the breasts and normal inspection of the axillae Breast/axilla palpation: normal palpation of the breasts and normal palpation of the axillae Resp Effort & Inspection: normal respiratory effort GI Inspection: Yes normal to inspection, No Abdominal wall edema and No distended Palpation (GI): Soft to palpation and nontender Other: External exam within normal limits vagina pink and moist cervix nulliparous pink moist healthy appearing normal appearing scant clear mucus cervix gaping slightly consistent with recent ovulation midcycle uterus small midposition mobile nontender adnexa nontender good tone with Kegel. General: Yes bladder normal to palpation External Female Exam: normal external appearance and normal appearance of the urethra Speculum Exam - Vagina: normal appearance of the vagina, normal palpation and normal vaginal discharge Speculum Exam - Cervix: normal appearance of the cervix, normal palpation and nontender Bimanual exam- vagina & uterus: normal bimanual exam, normal palpation, uterine size normal, bladder normal to palpation, consistency normal, normal palpation, uterine mobility normal, uterine shape normal, No Cervical tenderness present, non-tender and no cervical motion tenderness Bimanual Exam- Adnexa, other: normal adnexae, no masses, normal and No adnexal tenderness Neuro General: patient oriented x3 Results AMB Test Urine AMB Test Urine Negative Last Edit by Ramesh Moyer CMA on 05/17/24 11:01 Results Reviewed Results Reviewed: Patient: Elizabeth Garcia MR#: [id number] : 2000 Acct:[id number] Age/Sex: 23 / F ADM Date: 02/02/24 Loc: HO.ED Attending Dr: Ordering Physician: Silvia Garcia CNP Date of Service: 02/02/24 Procedure(s): US pelvic and transvaginal Accession Number(s): [id number] cc: Silvia Garcia CNP; Dorothy Gonzales MD~ EXAMINATION: US PELVIS CLINICAL INFORMATION: Heavy menstruation, pain and nausea. Currently having menstrual period. COMPARISON: None available. TECHNIQUE: Ultrasound of the pelvis is performed using both transabdominal and transvaginal transducers along with Doppler. Transvaginal imaging is performed due to inadequate visualization transabdominally. FINDINGS: Uterus: The uterus is anteverted and measures 6.1 x 3.1 x 3.5 cm. The double wall endometrial thickness is 4 mm. The uterus is smooth in contour and has normal myometrial echogenicity. No visible fibroid. Adnexa: Ovaries are normal in morphology with preserved flow at the moment of this examination.There is no pelvic ascites or fluid collection. Right ovary measures 3.2 x 1.6 x 2.2 cm. Volume of 6 mL. Left ovary measures 3.2 x 2.3 x 1.8 cm. Volume of 7 mL. US/US pelvic and transvaginal IMPRESSION: No acute sonographic abnormalities to explain the patient's symptoms. 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: Assessment & Plan Assessment & Plan (1) PCOS (polycystic ovarian syndrome): Code(s): E28.2 - Polycystic ovarian syndrome Category: Medical (2) Cervical cancer screening: Code(s): Z12.4 - Encounter for screening for malignant neoplasm of cervix Category: Medical (3) Encounter for screening examination for sexually transmitted disease: Code(s): Z11.3 - Encounter for screening for infections with a predominantly sexual mode of transmission Category: Medical (4) control counseling: Code(s): Z30.09 - Encounter for other general counseling and advice on contraception Category: Medical (5) Obesity (BMI 30-39.9): Code(s): E66.9 - Obesity, unspecified Category: Medical Plan Patient is not sure why she is here and only recently found out she had the appointment in that it was made for her. She thought it was for a full Pap smear nurse gynecology visit because she has not had that before. She recently saw her primary care provider who referred her she had had an episode of heavy bleeding but it was also accompanied by nausea and dizziness and not feeling well and her mother told her to go to the ER in case she has having a topic because she had recently become sexually active with her 1st partner. She has not actively contraceptive thing and will deal with the if it happens but would actually prefer on questioning to not be at this time she would like to do a test before the end of the visit (it was negative she has not late for her period-was just over 2 weeks ago. Patient has a very clear history of being diagnosed with diabetes type 2 when she was about 20 years old she was diagnosed by her pulper tender Dr. Marline ibrahim and had blood sugars in 300s and was I believe admitted at that time and stabilized and on metformin as well as insulin several times a day she also saw a pediatric professional wrestler done at [facility] until there was loss of insurance and change from pulper tender to adulthood. She also a that time in in those years endeavor very hard to lose weight and she started exercising and eating well and taking care of herself and she lost a lot of weight she also has had PCOS diagnosed at that time as well and she is very well educated about the relationship between PCOS and diabetes. She has currently not on metformin anymore though she has gained back some of the weight she lost. She is sexually active with her partner and she feels like it has a very good stable and supportive relationship and eating and she was in the emergency room all those hours in January for the bleeding and throwing up he was with her the whole time. 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 I did offer her whether not she wished to go on control pills or any of their analogs to regularize her periods for to prevent which she indicated interest in both but she has not ready to decide on that yet I strongly recommend condom use until she is positively welcoming the . I recommend taking a multivitamin with folic acid as well I also discussed that if she did become she would need to receive all care from the beginning at [facility] and she would be monitored very carefully for diabetes even though her blood sugars reportedly are good now and that she has maintain a healthier weight and maintaining her health is best thing she could do to help a future healthy as well. Orders: Orders HIV Ab/Ag Today E28.2 - Polycystic ovarian syndrome, E66.9 - Obesity, unspecified, Z11.3 - Encounter for screening for infections with a predominantly sexual mode of transmission, Z12.4 - Encounter for screening for malignant neoplasm of cervix, Z30.09 - Encounter for other general counseling and advice on contraception Bacterial Vaginosis Panel Today N89.8 - Other specified noninflammatory disorders of vagina AMB HCG Urine Test Today Z32.02 - Encounter for test, result negative Hepatitis B Surface Antigen Today E28.2 - Polycystic ovarian syndrome, E66.9 - Obesity, unspecified, Z11.3 - Encounter for screening for infections with a predominantly sexual mode of transmission, Z12.4 - Encounter for screening for malignant neoplasm of cervix, Z30.09 - Encounter for other general counseling and advice on contraception Hepatitis C Antibody Today E28.2 - Polycystic ovarian syndrome, E66.9 - Obesity, unspecified, Z11.3 - Encounter for screening for infections with a predominantly sexual mode of transmission, Z12.4 - Encounter for screening for malignant neoplasm of cervix, Z30.09 - Encounter for other general counseling and advice on contraception Syphilis Screen Today E28.2 - Polycystic ovarian syndrome, E66.9 - Obesity, unspecified, Z11.3 - Encounter for screening for infections with a predominantly sexual mode of transmission, Z12.4 - Encounter for screening for malignant neoplasm of cervix, Z30.09 - Encounter for other general counseling and advice on contraception Pap Smear Today Z01.419 - Encounter for gynecological examination (general) (routine) without abnormal findings CT NG by PCR Today N89.8 - Other specified noninflammatory disorders of vagina, Z20.2 - Contact with and (suspected) exposure to infections with a predominantly sexual mode of transmission Coding Level of Care Code New Pt Prev Care 18-39yr(21010 Diagnoses PCOS (polycystic ovarian syndrome) E28.2 Cervical cancer screening Z12.4 Encounter for screening examination for sexually transmitted disease Z11.3 control counseling Z30.09 Obesity (BMI 30-39.9) E66.9
[2024-05-17 09:31] VITALS: BMI 32.2
== END 2024-05-17 10:54 | disposition home or self-care (01) ==
PROVIDERS: PCP Internal Medicine; Visit Provider Advanced Practice Midwife
DX: Z01.419 Encounter for gynecological examination (general) (routine) without abnormal findings (principal); E28.2 Polycystic ovarian syndrome; E66.9 Obesity, unspecified; Z32.02 Encounter for pregnancy test, result negative
CPT/HCPCS: 99385

== ENCOUNTER 2024-06-13 15:05 | Outpatient (AMB) | payer OTHER, SELFPAY ==
[2024-06-13 15:09] VITALS: BP 124/70; PULSE 80; O2SAT 99; BMI 31.9
--- NOTE | 2024-06-13 15:09 | MHC.PC.OV ---
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 Required: No Accompanied by: Self / Same As Patient Is last menstrual period known: Yes Last menstrual period: 06/01/24 Allergies dulaglutide [From Trulicity] Adverse Reaction (Intermediate, Verified 06/13/24 15:57) Abdominal Pain, vomiting metformin Adverse Reaction (Intermediate, Verified 06/13/24 15:42) hypoglycemia Medication List - Last Reconciled 06/13/24 by Dorothy Chery MD dextroamphetamine-amphetamine 5 mg PO escitalopram oxalate 5 mg PO DAILY fluticasone propionate 50 mcg/actuation (Flonase Allergy Relief) 1 spray intranasal Q12H hydroxyzine HCl 10 mg PO ONCE PRN ibuprofen 800 mg PO Q8H PRN 10 days lorazepam 0.5 mg PO DAILY Tobacco use date assessed: 02/03/24 Dental Screening Dental Screen Date: 02/03/24 HPI HPI Comments History of Present Illness Details this is a 24-year-old female with mild major depression and diabetes mellitus type 2 that comes for her physical exam. Depression is stable with medications and follow by Psychiatry and counseling. Diabetes well controlled with diet. Last diabetic eye exam was over a year ago. Pap smear done 2023 was normal. no acute complaints. She is obese with a BMI of 31.9 and was advised to do diet and exercise to reach BMI goal less than 30. [facility] Medical History (Updated 06/13/24 @ 15:55 by Dorothy Chery MD) Depression Anxiety Hyperlipidemia associated with type 2 diabetes mellitus History of PCOS Surgical History History of wisdom tooth extraction Family History Mother Osteoporosis Franck's disease Father Diabetes Kidney disease Hypercholesteremia Social History Housing: House Alcohol intake: current Alcohol intake frequency: holidays/special occasions only Alcohol type: wine and hard liquor Patient Tobacco Use Status: Never used Tobacco e-Cigarette/Vaping Use: Never Used Second Hand Smoke Exposure: No service: No Current occupational status: employed Current occupational exposures/hazards: No Cognitive needs: No Hearing needs: No Vision needs: Yes Female Reproductive History Menstrual Age of Menarche: 17 Date of last menstrual period: 06/01/24 Questionnaire Thrive Questionnaire Date Thrive assessed: 02/03/24 ARUN-7 AMB Questionnaire ARUN-7 Date ARUN - 7 assessed: 02/03/24 Source: Developed by Drs. Leonard Neves, Akosua Vasquez, Mukesh Mensah and colleagues, with an educational svetlana from [employer]. Review of Systems Const All systems reviewed & are unremarkable except as noted in HPI and below Card Denies chest pain at rest, Denies chest pain with activity, Denies edema, Denies irregular heart rhythm, Denies claudication, Denies dyspnea, Denies dyspnea on exertion, Denies orthopnea, Denies paroxysmal nocturnal dyspnea and Denies slow heart rate Resp Denies cough, Denies dyspnea and Denies dyspnea on exertion GI Denies abdominal pain, Denies change in bowel habits, Denies excessive flatus, Denies nausea and Denies vomiting Neuro Denies behavioral changes and Denies lack of coordination Psych Denies behavioral changes Physical exam (Primary Care) Vital Signs: Last Vital Signs Pulse 80 06/13/24 15:09 BP 124/70 06/13/24 15:09 Pulse Ox 99 06/13/24 15:09 Oxygen Delivery Method Room Air 06/13/24 15:09 BMI result Body Mass Index 31.9 BMI Assessment/Plan discussion: High BMI High, discussed plan: lifestyle, weight reduction, dietary and physical activity Tobacco/Smoking Status: Tobacco use Status Tobacco use date assessed 02/03/24 06/13/24 15:10 Patient Tobacco Use Status Never used Tobacco 06/13/24 15:10 e-Cigarette/Vaping Use Never Used 06/13/24 15:10 Thrive Assessment: Date of Thrive Assessment Date Thrive assessed 02/03/24 06/13/24 15:10 HENMT Head: Yes normal to inspection, Yes normocephalic and Yes atraumatic Ears: external ears normal Eyes General: appearance normal, both eyes and all related structures Eyelids: Yes eyelids normal Conjunctivae: conjunctivae normal Neck Neck: Yes normal visual inspection and Yes supple Resp Effort & Inspection: normal respiratory effort Auscultation: clear to auscultation bilaterally Cardio Jugular venous distension: no JVD Rate: regular rate Rhythm: regular rhythm Heart sounds: S1 normal heart sound present and S2 normal heart sound present GI Inspection: Yes normal to inspection Palpation (GI): Soft to palpation and nontender Auscultation: normal bowel sounds Skin General skin exam: no rashes or lesions noted Neuro General: no focal motor deficits Extrem General: Yes full ROM Psych Appearance: grossly normal Results AMB Hemoglobin A1c AMB Hemoglobin A1c 5.7 % Last Edit by NELIDA Schmidt on 06/13/24 15:54 Assessment and Plan Assessment & Plan (1) Physical exam: Code(s): Z00.00 - Encounter for general adult medical examination without abnormal findings Plan: Repeat in a year. (2) Diabetes mellitus: Code(s): E11.9 - Type 2 diabetes mellitus without complications Qualifiers: Diabetes mellitus type: type 2 Diabetes mellitus long term care social worker insulin use: without group home use Diabetes mellitus complication status: without complication Qualified Code(s): E11.9 - Type 2 diabetes mellitus without complications Plan: Continue low-carbohydrate diet. A1c goal is equal or less than 7%. Start Ozempic. Patient tried metformin and was having blood glucose in the 30s and this is why was discontinue. she tried Trulicity on the past and had abdominal pain And vomiting. (3) Mild major depression: Code(s): F32.0 - Major depressive disorder, single episode, mild Plan: Follow-up with psychiatry. Orders: Orders AMB Hemoglobin A1c Today E11.9 - Type 2 diabetes mellitus without complications Microalbumin, Random (w Creat) 6 Months E11.9 - Type 2 diabetes mellitus without complications Lipid Panel 6 Months E78.5 - Hyperlipidemia, unspecified Comprehensive [place]. Panel Fast 6 Months Z00.00 - Encounter for general adult medical examination without abnormal findings Referrals Ophthalmology Referral E11.9 - Type 2 diabetes mellitus without complications Medications: New semaglutide (Ozempic) for 4 weeks 0.25 mg (0.368 mL) subcut QWEEK 4 weeks 1.472 mL 0RF E11.9 - Type 2 diabetes mellitus without complications Coding Level of Care Code Est Pt Prev Care [id number]) Diagnoses Physical exam Z00.00 Type 2 diabetes mellitus without complication, without long-term current use of insulin E11.9 Diabetes mellitus type: type 2 Diabetes mellitus group home insulin use: without group home use Diabetes mellitus complication status: without complication Mild major depression F32.0 Time Spent (min) 33
== END 2024-06-13 15:54 | disposition home or self-care (01) ==
PROVIDERS: PCP Internal Medicine; Visit Provider Internal Medicine
DX: Z00.00 Encounter for general adult medical examination without abnormal findings (principal); E11.9 Type 2 diabetes mellitus without complications; F32.0 Major depressive disorder, single episode, mild
CPT/HCPCS: 83036; 99395

== ENCOUNTER 2025-01-05 23:15 | Emergency (ER) | payer OTHER, SELFPAY ==
[2025-01-05 23:26] VITALS: BP 118/82; PULSE 114; O2SAT 100
[2025-01-05 23:32] VITALS: BP 108/69; PULSE 109; RESP 20; TEMP 36.6; O2SAT 100; BMI 29.0
[2025-01-05] MEDS: Ondansetron ODT 4 MG TAB.RAPDIS TRANSLINGU (23:37)
[2025-01-05 23:46] LABS: MANUAL DIFF FLAG NO
[2025-01-05 23:50] LABS: Basophils Absolute Auto 0.1 X10*3/uL (0.0-0.2); Basophils Percent Auto 0.3 % (0-2); Eosinophils Absolute Auto 0.1 X10*3/uL (0.0-0.4); Eosinophils Percent Auto 0.6 % (0-4); Hematocrit 46.7 % (37.0-47.0); Hemoglobin 16.3 g/dl (12.0-16.0); Imm Gran Abs Auto 0.09 X10*3/uL (0.00-0.03); Imm Gran Pct Auto 0.4 % (0.0-0.4); Lymphocytes Absolute Auto 0.7 X10*3/uL (1.2-4.9); Lymphocytes Percent Auto 3.2 % (20-40); Mean Corpuscular HGB Conc 34.9 g/dl (31.0-35.0); Mean Corpuscular Hemoglobin 29.5 pg (27.0-33.0); Mean Corpuscular Volume 84.4 fL (80.0-98.0); Mean Platelet Volume 9.9 fL (9.4-12.3); Monocytes Absolute Auto 1.2 X10*3/uL (0.1-1.2); Monocytes Percent Auto 5.7 % (2-11); Neutrophils Absolute Auto 18.5 x10*3/uL (2.0-8.3); Neutrophils Percent Auto 89.8 % (45-73); Platelet Count 353 X10*3/uL (160-400); Red Blood Count 5.53 X10*6/uL (4.20-5.50); White Blood Count 20.6 X10*3/uL (4.8-10.8)
[2025-01-06 00:21] LABS: Albumin Level 4.7 g/dL (3.5-5.0); Alkaline Phosphatase 93 U/L (39-117); Anion Gap 16 (12-20); Aspartate Amino Transferase 28 U/L (5-31); Bilirubin Total 0.7 mg/dL (0.0-1.0); Blood Urea Nitrogen 15 mg/dL (9-16); Calcium 10.1 mg/dL (8.4-10.2); Carbon Dioxide 11 mmol/L (22-29); Chloride 109 mmol/L (96-108); Creatinine Clr Calc Pharmacy 113.6; Estimated Glomerular Filt Rate > 60; Glucose Random 191 mg/dL (60-115); HCG Quantitative < 2 mIU/mL; Lipase 29 U/L (8-78); Potassium 3.7 mmol/L (3.3-5.1); Sodium 132 mmol/L (135-145); Total Protein 8.7 g/dL (6.5-8.0)
[2025-01-06 00:34] LABS: Alanine Aminotransferase 47 U/L (0-31)
[2025-01-06 03:05] VITALS: BP 119/65; PULSE 95; RESP 16; TEMP 36.7; O2SAT 99
[2025-01-06 04:00] VITALS: BP 107/71; PULSE 95; RESP 16; TEMP 36.6; O2SAT 98
--- NOTE | 2025-01-06 04:18 | ED_ITS ---
HPI - Nausea/Vomiting/Diarrhea General Chief complaint: Nausea/Vomiting/Diarrhea Stated complaint: Ab pain n/v Time Seen by Provider: 01/06/25 03:49 Source: patient Mode of arrival: ambulatory Limitations: no limitations History of Present Illness ED Provider: HPI Narrative: Patient with history of major depression and diabetes type 2 complaining of pain in epigastric area for 3 weeks and since yesterday started vomiting and having watery stool more than 10 times Related Data Home Medications ?Medication ?Instructions ?Recorded ?Confirmed dextroamphetamine-amphetamine 5 mg PO 02/03/24 06/13/24 tablet escitalopram oxalate 5 mg tablet 5 mg PO DAILY 02/03/24 06/13/24 hydroxyzine HCl 10 mg tablet 10 mg PO ONCE PRN 02/03/24 06/13/24 lorazepam 0.5 mg tablet 0.5 mg PO DAILY 02/03/24 06/13/24 Previous Rx's ?Medication ?Instructions ?Recorded fluticasone propionate 50 1 spray intranasal Q12H #16 grams 03/16/24 mcg/actuation nasal spray,suspension (Flonase Allergy Relief) ibuprofen 800 mg tablet 800 mg PO Q8H PRN pain 10 days #30 03/16/24 tabs semaglutide 0.25 mg or 0.5 mg (2 0.5 mg (0.736 mL) subcut QWEEK 4 12/23/24 mg/3 mL) subcutaneous pen injector weeks #2.944 mL (Ozempic) loperamide 2 mg tablet (Imodium 2 mg PO Q6H PRN loose stool #10 01/06/25 A-D) tabs ondansetron 4 mg disintegrating 4 mg PO Q6-8H PRN nausea and 01/06/25 tablet vomiting #10 tabs Allergies Allergy/AdvReac Type Severity Reaction Status Date / Time [facility] AdvReac Intermediate Abdominal Verified 01/05/25 23:33 Pain, vomiting metformin AdvReac Intermediate hypoglycemi Verified 01/05/25 23:33 a Review of Systems 2 Review of Systems: Yes all other systems are reviewed and are negative PMFSH Past Medical History Medical History Depression Anxiety Hyperlipidemia associated with type 2 diabetes mellitus History of PCOS Surgical History History of wisdom tooth extraction Family History Family History Mother Osteoporosis Franck's disease Father Diabetes Kidney disease Hypercholesteremia Social History Social History Housing: House Alcohol intake: current Alcohol intake frequency: holidays/special occasions only Alcohol type: wine and hard liquor Patient Tobacco Use Status: Never used Tobacco Smoked in Last 30 Days: No e-Cigarette/Vaping Use: Never Used Second Hand Smoke Exposure: No Use of substances other than those prescribed or required for medical reasons: No Advance Directives: No Do you have a plan to hurt others: No Plan Patient : No service: No Current occupational status: employed Current occupational exposures/hazards: No Cognitive needs: No Hearing needs: No Vision needs: Yes Physical Exam 2 Vital Signs: Vital Signs: Last Vital Signs Temp 97.8 F 01/06/25 04:00 Pulse 95 01/06/25 04:00 Resp 16 01/06/25 04:00 BP 107/71 01/06/25 04:00 Pulse Ox 98 01/06/25 04:00 O2 Del Method Room Air 01/06/25 04:00 BMI result Body Mass Index 29.0 Appearance: Alert. Oriented X3. No acute distress. Eyes: PERRLA, No Nystagmus ENT: Pharynx normal. Oral Mucosa moist Neck: Normal inspection. Neck supple. CVS: Normal heart rate and rhythm. Pulses normal. Respiratory: No respiratory distress. Equal air entry bilateral, no wheezing/rales/rhonchi Abdomen: Soft and mild epigastric tenderness. Bowel sounds are present, no mass palpable, no CVA tenderness Skin: Skin warm and dry. Normal skin color. Normal skin turgor. Extremities: No lower extremity edema. No calf tenderness Neuro: Oriented X 3. No motor deficit. Medications Administered Discontinued Medications Generic Name Dose Route Start Last Admin Trade Name Freq PRN Reason Stop Dose Admin Sodium Chloride 1,000 mls @ 999 mls/hr 01/06/25 04:18 01/06/25 06:05 Ns IV 01/06/25 05:18 Infused .Q1H1M ONE Infusion Loperamide HCl 4 mg 01/06/25 04:25 01/06/25 04:33 Loperamide Hcl 2 Mg Capsule PO 01/06/25 04:26 4 mg ONCE ONE Administration Ondansetron HCl 4 mg 01/05/25 23:35 01/05/25 23:37 Ondansetron Odt 4 Mg Tab.Rapdis TRANSLINGU 01/05/25 23:36 4 mg ONCE ONE Administration Ondansetron HCl 4 mg 01/06/25 04:25 01/06/25 04:33 Ondansetron Hcl 4 Mg/2 Ml Vial IVPUSH 01/06/25 04:26 4 mg ONCE ONE Administration Medical Decision Making Medical Decision Making [facility] Narrative: Patient has acute gastroenteritis with mostly diarrhea and vomiting with mild epigastric pain with significant fluid loss responded to IV fluids taking p.o. fluids at this time feeling much better patient does have leukocytosis and acidosis likely from flu volume loss at the time of discharge patient is feeling much better likely norovirus as the cause of the symptoms no focal tenderness in abdomen Differential Diagnosis Differential Diagnoses: The differential diagnosis associated with the presentation includes Viral gastroenteritis/ Lab Data [facility] Lab Attestation statement: I reviewed the patient's lab results. 01/05/25 23:41 01/05/25 23:41 Labs: Lab Results 01/05/25 Range/Units 23:41 WBC 20.6 H (4.8-10.8) X10*3/uL RBC 5.53 H (4.20-5.50) X10*6/uL Hgb 16.3 H (12.0-16.0) g/dl Hct 46.7 (37.0-47.0) % MCV 84.4 (80.0-98.0) fL MCH 29.5 (27.0-33.0) pg MCHC 34.9 (31.0-35.0) g/dl RDW 13.0 (11.0-16.0) % Plt Count 353 (160-400) X10*3/uL MPV 9.9 (9.4-12.3) fL Immature Gran % (Auto) 0.4 (0.0-0.4) % Neut % (Auto) 89.8 H (45-73) % Lymph % (Auto) 3.2 L (20-40) % [place] % (Auto) 5.7 (2-11) % Eos % (Auto) 0.6 (0-4) % Baso % (Auto) 0.3 (0-2) % Lymph # (Auto) 0.7 L (1.2-4.9) X10*3/uL [place] # (Auto) 1.2 (0.1-1.2) X10*3/uL Eos # (Auto) 0.1 (0.0-0.4) X10*3/uL Baso # (Auto) 0.1 (0.0-0.2) X10*3/uL Abs Immat Gran (auto) 0.09 H (0.00-0.03) X10*3/uL Absolute Neuts (auto) 18.5 H (2.0-8.3) x10*3/uL Absolute Nucleated RBC 0.000 (0.0-0.012) X10*3/uL Nucleated RBC % (auto) 0.0 (0.0-0.2) /100WBC Sodium 132 L (135-145) mmol/L Potassium 3.7 (3.3-5.1) mmol/L Chloride 109 H (96-108) mmol/L Carbon Dioxide 11 L (22-29) mmol/L Anion Gap 16 (12-20) BUN 15 (9-16) mg/dL Creatinine 0.75 (0.5-1.4) mg/dL Estim Creat Clear Calc 113.6 Estimated GFR > 60 Random Glucose 191 H (60-115) mg/dL Calcium 10.1 D (8.4-10.2) mg/dL Total Bilirubin 0.7 (0.0-1.0) mg/dL AST 28 (5-31) U/L ALT 47 H (0-31) U/L Alkaline Phosphatase 93 (39-117) U/L Total Protein 8.7 H (6.5-8.0) g/dL Albumin 4.7 (3.5-5.0) g/dL Lipase 29 (8-78) U/L Beta HCG, Quant < 2 mIU/mL Discharge Plan Discharge Clinical Impression: Gastroenteritis Patient Disposition: Home, Self-Care Instructions: Gastroenteritis (ED) Additional Instructions: Likely have norovirus as the cause of gastroenteritis Drink plenty of fluids Medicine for nausea as prescribed Take Medicine for severe diarrhea Report to the ER if not better Prescriptions: New ondansetron 4 mg tablet,disintegrating 4 mg PO Q6-8H PRN (Reason: nausea and vomiting) Qty: 10 0RF loperamide [Imodium A-D] 2 mg tablet 2 mg PO Q6H PRN (Reason: loose stool) Qty: 10 0RF No Action Ozempic 0.25 mg or 0.5 mg (2 mg/3 mL) pen injector 0.5 mg subcut QWEEK 28 Days Qty: 2.944 0RF ibuprofen 800 mg tablet 800 mg PO Q8H PRN (Reason: pain) 10 Days Qty: 30 0RF fluticasone propionate [Flonase Allergy Relief] 50 mcg/actuation spray,suspension 1 spray intranasal Q12H Qty: 16 0RF Rx Instructions: administer into each nostril escitalopram oxalate 5 mg tablet 5 mg PO DAILY dextroamphetamine-amphetamine 5 mg tablet PO lorazepam 0.5 mg tablet 0.5 mg PO DAILY hydroxyzine HCl 10 mg tablet 10 mg PO ONCE PRN Print Language: [place] Island[place]
[2025-01-06] MEDS: ondansetron HCL 4 MG/2 ML VIAL IVPUSH (04:33)
[2025-01-06] MEDS: Loperamide HCl 2 MG CAPSULE 4 MG PO (04:33)
[2025-01-06] MEDS: 0.9 % Sodium Chloride 1,000 ML 999 ML IV (04:33)
--- NOTE | 2025-01-06 04:42 | PC.NURSE ---
pt a&ox4, respirations even and unlabored. pt reports x1 day of n/v/d, pt reports she had episode of diarrhea in the waiting room. pt reports decreased po intake due to nausea. 20G placed in left forearm, medicated per jan.
[2025-01-06 07:33] VITALS: BP 107/71; PULSE 95; RESP 16; TEMP 36.6; O2SAT 98
== END 2025-01-06 08:00 | disposition home or self-care (01) ==
PROVIDERS: Emergency Provider Internal Medicine; PCP Internal Medicine
DX: K52.9 Noninfective gastroenteritis and colitis, unspecified (principal); F33.1 Major depressive disorder, recurrent, moderate; R11.2 Nausea with vomiting, unspecified; E11.9 Type 2 diabetes mellitus without complications; R10.13 Epigastric pain; Z79.899 Other long term (current) drug therapy; Z79.84 Long term (current) use of oral hypoglycemic drugs
CPT/HCPCS: 36415; 80053; 83690; 84702; 85025; 96361; 96374; 99284; 99285; J2405